=== PATIENT | female | born 1965 | race African-American/Black ===

== ENCOUNTER 2016-09-24 22:00 | Emergency (ER) | payer BC | END 2016-09-24 22:06 | disposition home or self-care (01) | LOC: ER 22:00 | DX: S83.91XA Sprain of unspecified site of right knee, initial encounter (principal); Z90.710 Acquired absence of both cervix and uterus; W19.XXXA Unspecified fall, initial encounter; Y93.51 Activity, roller skating (inline) and skateboarding | CPT/HCPCS: 73560-RT; 96372; 99283; J1170; J1885 ==